=== PATIENT | female | born 1965 | race Caucasian/White ===

== ENCOUNTER 2019-05-05 04:32 | Emergency (ER) | payer OTHER ==
[~2019-05-05] VITALS: Ht 157.5 cm; Wt 52.2 kg
[2019-05-05 05:04] LABS: INR 1.1; PROTIME 10.9 Seconds (9.20-11.50)
[2019-05-05 05:30] LABS: CALCIUM 8.3 mg/dL (8.5-10.1); CREATININE 0.8 mg/dL (0.6-1.3); POTASSIUM 3.6 mmol/L (3.5-5.1)
[2019-05-05 05:35] LABS: ALBUMIN 3.7 g/dL (3.4-5.0); TOTAL BILIRUBIN 0.3 mg/dL (<0.1-1.0); TOTAL PROTEIN 6.6 g/dL (6.4-8.2)
[2019-05-05 05:52] LABS: ABSOLUTE BASOPHILS 0.1 thou/uL (0.0-0.2); ABSOLUTE EOSINOPHILS 0.1 thou/uL (0.0-0.7); ABSOLUTE LYMPHOCYTES 0.8 thou/uL (0.8-5.3); ABSOLUTE MONOCYTES 0.3 thou/uL (0.0-1.2); ABSOLUTE NEUTROPHILS 3.3 thou/uL (1.6-8.1); BASOPHILS 1.4 %; EOSINOPHILS 2.7 %; HEMATOCRIT 41.2 % (37.0-47.0); HEMOGLOBIN 13.7 gm/dL (12.0-15.0); LYMPHOCYTES 18.1 %; MCH 28.2 pg (26.0-34.0); MCHC 33.2 g/dL (28.0-37.0); MONOCYTES 7.4 %; MPV 7.7 fl. (7.2-11.1); NUCLEATED RBCS 0 /100WBC; PLATELET COUNT* 194 thou/uL (150-400); POLYS 70.4 %; RBC 4.85 mil/uL (4.20-5.00); RDW-CV 13.9 % (10.5-14.5); WBC 4.6 thou/uL (4.0-11.0)
[2019-05-05] MEDS ORDERED: NORCO 5-325 TA1 EAC1 PO (07:55)
[2019-05-05] MEDS ORDERED: FLEXERIL PO (07:55)
[2019-05-05 08:21] VITALS: BP 167/95
== END 2019-05-05 08:28 | disposition home or self-care (01) ==
LOC: M.ERS 04:32
PROVIDERS: Emergency Medicine
DX: S01.01XA Laceration without foreign body of scalp, initial encounter (principal); S20.411A Abrasion of right back wall of thorax, initial encounter; M54.2 Cervicalgia; M25.551 Pain in right hip; Z98.890 Other specified postprocedural states; Y04.0XXA Assault by unarmed brawl or fight, initial encounter; Y93.89 Activity, other specified; Y92.89 Other specified places as the place of occurrence of the external cause; Y99.8 Other external cause status

== ENCOUNTER 2019-06-12 23:38 | Emergency (ER) | payer OTHER ==
[~2019-06-12] VITALS: Ht 157.5 cm; Wt 50.8 kg
[~2019-06-12 23:38] MED LIST: FLEXERIL PO; NORCO 5-325 TA1 EAC1 PO
[2019-06-12 23:44] VITALS: BP 134/85
== END 2019-06-13 00:09 | disposition home or self-care (01) ==
LOC: M.ERS 23:38
DX: S01.01XD Laceration without foreign body of scalp, subsequent encounter (principal); Z98.890 Other specified postprocedural states; X58.XXXD Exposure to other specified factors, subsequent encounter

== ENCOUNTER 2020-07-02 15:39 | Emergency (ER) | payer OTHER ==
[~2020-07-02] VITALS: Ht 157.5 cm; Wt 49.9 kg
[2020-07-02 16:39] LABS: URINE BILIRUBIN NEGATIVE (Negative); URINE BLOOD NEGATIVE (Negative); URINE CLARITY CLEAR; URINE GLUCOSE-RANDOM NEGATIVE (Negative); URINE KETONES NEGATIVE (Negative); URINE LEUKOCYTES NEGATIVE (Negative); URINE NITRITE NEGATIVE (Negative); URINE PROTEIN NEGATIVE (Negative); URINE SPECIFIC GRAVITY <= 1.005 (1.005-1.030); URINE UROBILINOGEN 0.2 E.U./dl (0.2-1.0)
[2020-07-02 16:40] LABS: URINE COLOR PALE YELLOW
[2020-07-02 16:42] LABS: ABSOLUTE BASOPHILS 0.1 thou/uL (0.0-0.2); ABSOLUTE EOSINOPHILS 0.2 thou/uL (0.0-0.7); ABSOLUTE LYMPHOCYTES 1.8 thou/uL (0.8-5.3); ABSOLUTE MONOCYTES 0.5 thou/uL (0.0-1.2); ABSOLUTE NEUTROPHILS 2.3 thou/uL (1.6-8.1); BASOPHILS 1.4 %; EOSINOPHILS 4.1 %; HEMOGLOBIN 12.7 gm/dL (12.0-15.0); LYMPHOCYTES 36.6 %; MCH 24.9 pg (26.0-34.0); MCHC 31.7 g/dL (28.0-37.0); MCV 78.7 fL (80.0-100.0); MONOCYTES 9.8 %; MPV 7.2 fl. (7.2-11.1); NUCLEATED RBCS 0 /100WBC; PLATELET COUNT* 241 thou/uL (150-400); POLYS 48.1 %; RBC 5.08 mil/uL (4.20-5.00); RDW-CV 14.7 % (10.5-14.5); WBC 4.9 thou/uL (4.0-11.0)
[2020-07-02 16:46] LABS: AMP/METHAMP Negative (Negative); BARBITURATES Negative (Negative); BENZODIAZEPINES Negative (Negative); COCAINE Negative (Negative); METHADONE Negative (Negative); OPIATES Negative (Negative); PCP Negative (Negative); THC Negative (Negative)
[2020-07-02 16:48] LABS: CALCIUM 8.7 mg/dL (8.5-10.1); CREATININE 0.7 mg/dL (0.6-1.3); POTASSIUM 3.8 mmol/L (3.5-5.1)
[2020-07-02 16:52] LABS: ALCOHOL 25 mg/dL (<10)
[2020-07-02 16:53] LABS: ALBUMIN 3.7 g/dL (3.4-5.0); TOTAL BILIRUBIN 0.2 mg/dL (<0.1-1.0); TOTAL PROTEIN 7.3 g/dL (6.4-8.2)
[2020-07-02 16:54] LABS: ACETAMINOPHEN < 2 ug/mL (10-30)
[2020-07-02 18:32] VITALS: BP 104/67
--- NOTE | 2020-07-03 11:55 | EKG ---
[place] [address] ELECTROCARDIOGRAM REPORT Name: TUNDE RANDHAWA Room: [facility]#: [id number] Admission: 07/02/20 Attend Phys: Discharge: 07/02/20 Date of : 65 Date of Service: 07/02/20 1611 Report #: [id number] THIS REPORT FOR: //name// [facility] ED Test Date: 2020-07-02 Test Time: 16:11:15 Pat Name: TUNDE RANDHAWA Department: Room: Gender: F Head Of Marketing Adometry: CHRIS Ma : 1965 Requested By: Nithya Palma Order Number: [id number] MD: Ryan Camarena Measurements Intervals Riner Rate: 82 P: 65 DE: 147 QRS: 37 QRSD: 67 T: 55 QT: 380 QTc: 444 Interpretive Statements Sinus rhythm No previous ECG available for comparison Electronically Signed On 07-03-2020 11:55:06 RAMP LEAD by Ryan Camarena [email or web address] <ELECTRONICALLY SIGNED> By: Cal Camarena MD, [facility] 07/03/20 1155 161 10 Cal Camarena MD, [facility] /EPI
== END 2020-07-02 18:33 | disposition home or self-care (01) ==
LOC: M.ERS 15:39
PROVIDERS: Physician Assistant
DX: R40.0 Somnolence (principal); R41.82 Altered mental status, unspecified; Z98.890 Other specified postprocedural states